=== PATIENT | male | born 1990 | race African-American/Black ===

== ENCOUNTER 2025-06-12 09:05 | Inpatient (IN) | payer OTHER ==
[~2025-06-12] VITALS: Ht 180.3 cm; Wt 76.2 kg
[2025-06-12] MEDS ORDERED: ACETAMINOPHEN ES 500 MG TABLET ONE (09:22)
[2025-06-12] MEDS: IV NS 0.9% 1,000 ML BAG IV ONE (09:32)
[2025-06-12] MEDS: ACETAMINOPHEN ES 500 MG TABLET PO ONE (09:33)
[2025-06-12] MEDS: CEFEPIME 1 GM in IV D5W 50 ML IV ONE (09:41)
[2025-06-12 09:45] LABS: PLATELET COUNT (AUTO) 224 K/uL (150-450); RED BLOOD CELL COUNT(AUTO) 4.40 MIL/uL (4.5-6.0); RED CELL DISTRIBUTION WIDTH 14.7 % (11.5-15.0); WHITE BLOOD COUNT (AUTO) 11.3 K/uL (4.3-11.0)
[2025-06-12 09:55] LABS: CALCIUM, SERUM 8.9 mg/dL (8.5-10.1); CREATININE 1.3 mg/dL (0.6-1.3); SODIUM SERUM 138 mmol/L (136-145); UREA NITROGEN, BLOOD 21 mg/dL (7-18)
[2025-06-12 10:01] LABS: ASPARTATE AMINOTRANSFERASE 12 U/L (15-37); TOTAL PROTEIN, SERUM 7.3 g/dL (6.4-8.2)
[2025-06-12 10:15] LABS: INR 0.97 (0.91-1.10)
[2025-06-12 10:16] LABS: APPEARANCE,URINE CLEAR (CLEAR); BLOOD, URINE Negative Ery/uL (NEGATIVE); LEUKOCYTE ESTERASE ,URINE Negative (NEGATIVE); UGLUCOSE Negative (NEGATIVE)
[2025-06-12 10:19] LABS: LACTIC ACID 2.9 mmol/L (0.4-2.0)
[2025-06-12 10:21] LABS: NITRITE, URINE NEGATIVE (NEGATIVE)
[2025-06-12] MEDS: AZITHROMYCIN 500 MG in IV D5W 250 ML IV ONE (11:09)
[2025-06-12] MEDS ORDERED: KETOROLAC TROMETHAMINE 15 MG/ML VIAL ONE (11:27)
[2025-06-12] MEDS: KETOROLAC TROMETHAMINE 15 MG/ML VIAL IV ONE (11:46)
[2025-06-12] MEDS ORDERED: MAGNESIUM HYDROXIDE 30 ML UDC PO PRN (13:00)
[2025-06-12] MEDS ORDERED: ONDANSETRON HCL/PF 4 MG/2 ML VIAL IVP PRN (13:00)
[2025-06-12] MEDS: ENOXAPARIN SODIUM 40 MG/0.4 ML DISP.SYRIN SQ SCH (13:00)
[2025-06-12] MEDS ORDERED: MAG HYDROX/AL HYDROX/SIMETH 30 ML UDC PO PRN (13:00)
[2025-06-12] MEDS ORDERED: ENOXAPARIN SODIUM 40 MG/0.4 ML DISP.SYRIN SQ ONE (17:29)
[2025-06-12] MEDS: IV NS 0.9% 1,000 ML IV SCH (18:24)
[2025-06-12] MEDS: CEFEPIME 2 GM in IV D5W 100 ML IV SCH (18:29)
[2025-06-12] MEDS: ACETAMINOPHEN 325 MG TABLET PO PRN (20:03)
[2025-06-12 20:27] VITALS: BP 107/59; TEMP 98.1; O2SAT 98
[2025-06-13 00:17] VITALS: BP 116/68; TEMP 98.1; O2SAT 99
[2025-06-13 04:00] VITALS: BP 99/45; TEMP 98.8; O2SAT 98
[2025-06-13 08:00] VITALS: BP 105/63; TEMP 98.2; O2SAT 99
[2025-06-13] MEDS: PANTOPRAZOLE 40 MG TABLET.DR PO SCH (08:03)
[2025-06-13] MEDS: AZITHROMYCIN 500 MG in IV D5W 250 ML IV SCH (10:14)
[2025-06-13] MEDS: IV NS 0.9% 1,000 ML IV PRN (11:02)
== END 2025-06-13 14:25 | disposition left against medical advice (07) | DRG 720 ==
LOC: ER 09:14 → TELE 13:44 → TELE1 16:13 → MEDSG1 06-13 09:52
PROVIDERS: ATTEND Nurse Practitioner Acute Care
DX: A41.9 Sepsis, unspecified organism (principal); J15.69 Pneumonia due to other Gram-negative bacteria; E87.20 Acidosis, unspecified; F20.9 Schizophrenia, unspecified; Z59.00 Homelessness unspecified; Z20.822 Contact with and (suspected) exposure to COVID-19; F17.210 Nicotine dependence, cigarettes, uncomplicated; F31.9 Bipolar disorder, unspecified; Z53.29 Procedure and treatment not carried out because of patient's decision for other reasons; F19.11 Other psychoactive substance abuse, in remission; F10.21 Alcohol dependence, in remission
CPT/HCPCS: 36415; 71045-TC; 74018; 80048-TC; 80076-TC; 83605-TC; 85025-TC; 85730-TC; 87040-TC; 87081-TC; 87086-TC; 93307-TC; A4223; G0378; J0456; J0692; J1650; J1885; J3490; J7030; J7050; J7060